=== PATIENT | male | born 1960 | race Caucasian/White ===

== ENCOUNTER 2017-09-05 17:26 | Emergency (ER) | payer OTHER ==
[~2017-09-05] VITALS: Ht 195.6 cm; Wt 117.9 kg
[~2017-09-05 17:26] MED LIST: ALDACTONE25 MG PO; ASPIR-LOW81 MG PO; ATORVASTATIN CA40 MG PO; CARVEDILOL6.25 MG PO; COLACE100 MG PO; LISINOPRIL5 MG PO; NITROGLYCERIN0.4 MG SL; NORCO 5-325 TA1 EACH PO; NOVOLOG100 UNIT/1 SQ
[2017-09-05 17:31] VITALS: BP 132/92
[2017-09-05] MEDS ORDERED: KEFLEX500 M1 PO (18:12)
== END 2017-09-05 18:22 | disposition home or self-care (01) ==
LOC: M.ERS 17:26
DX: S01.01XA Laceration without foreign body of scalp, initial encounter (principal); E11.9 Type 2 diabetes mellitus without complications; I21.9 Acute myocardial infarction, unspecified; F17.210 Nicotine dependence, cigarettes, uncomplicated; Z88.7 Allergy status to serum and vaccine; Z79.4 Long term (current) use of insulin; X58.XXXA Exposure to other specified factors, initial encounter; Y93.89 Activity, other specified; Y92.89 Other specified places as the place of occurrence of the external cause; Y99.8 Other external cause status

== ENCOUNTER 2017-09-18 00:54 | Emergency (ER) | payer OTHER ==
[~2017-09-18] VITALS: Ht 195.6 cm; Wt 113.4 kg
[~2017-09-18 00:54] MED LIST changes: +KEFLEX500 M1 PO
[2017-09-18 00:59] VITALS: BP 117/67
== END 2017-09-18 01:11 | disposition home or self-care (01) ==
LOC: M.ERS 00:54
DX: S01.01XD Laceration without foreign body of scalp, subsequent encounter (principal); E11.9 Type 2 diabetes mellitus without complications; I21.9 Acute myocardial infarction, unspecified; F17.210 Nicotine dependence, cigarettes, uncomplicated; Z88.7 Allergy status to serum and vaccine; X58.XXXD Exposure to other specified factors, subsequent encounter